=== PATIENT | male | born 1980 | race Caucasian/White ===

== ENCOUNTER → 2017-06-15 11:54 | Outpatient (CLI) | payer BC, SELFPAY ==
[2017-06-15 14:36] LABS: Anion Gap 7 (5-15); BUN 17 mg/dL (7-18); BUN/Creat Ratio 19.4 RATIO (10-20); Calcium,Total 8.7 mg/dL (8.5-10.1); Chloride 103 mmol/L (98-107); Creatinine, Serum 0.88 mg/dL (0.70-1.30); EST Glomerular Filtration Rate 104 mL/min (>60); Est Glom Filt Rate - Afr Amer 126 mL/min (>60); Glucose 90 mg/dL (74-106); Potassium 3.8 mmol/L (3.5-5.1); Sodium Level 138 mmol/L (136-145)
[2017-06-15 14:51] LABS: Hematocrit 44.1 % (40-54); Hemoglobin 15.5 g/dl (13.0-16.5); Mean Corp Hgb Conc 35.1 g/gl (32-36); Mean Corpuscular Hgb 31.3 pg (27.0-32.0); Mean Corpuscular Volume 88.9 fL (80-94); Mean Platelet Vol. 10.2 fl (6.2-12.0); Platelet Count 311 K/mm3 (150-450); RBC Distribution Width CV 12.3 % (11.6-14.6); RBC Distribution Width SD 39.7 fl (35.1-43.9); Red Blood Count 4.96 M/mm3 (4.6-6.2); White Blood Count 5.9 K/mm3 (4.4-11.0)
[2017-06-15 14:59] LABS: Scan Indicated on CBC? Y/N NO
== END ==
PROVIDERS: Family Provider Family Medicine; PCP Family Medicine; Visit Provider Family Medicine
DX: I10 Essential (primary) hypertension (principal)
CPT/HCPCS: 36415; 80048; 85027

== ENCOUNTER → 2017-08-02 08:56 | Outpatient (CLI) | payer BC, SELFPAY ==
--- NOTE | 2017-08-02 09:02 | RAD_ITS ---
STUDY: X-RAY - LUMBAR SPINE REASON FOR EXAM: Male, 37 years old. Lumbago and sciatica TECHNIQUE: 5 view(s) of the lumbar spine were obtained. COMPARISON: None FINDINGS: There is straightening of the normal lumbar lordosis. There is no substantial scoliosis. There is a normal alignment of the vertebrae. Stool throughout the colon. There is multilevel endplate spondylosis of the lumbar vertebrae. There is multi-level degenerative disc disease with multi-level disc space narrowing. The soft tissue structures are unremarkable. RAD/L/S Spine Min 4 Views IMPRESSION: Degenerative changes of the spine, as detailed above. There is mild straightening of the normal lumbar lordosis. This can suggest back strain. Constipation Electronically Signed: Mac Cazares MD at 19:32 EDT , Service support ,
== END ==
PROVIDERS: Family Provider Family Medicine; PCP Family Medicine; Visit Provider Family Medicine
DX: M54.40 Lumbago with sciatica, unspecified side (principal); M47.896 Other spondylosis, lumbar region; M51.36 Other intervertebral disc degeneration, lumbar region; K59.00 Constipation, unspecified
CPT/HCPCS: 72110

== ENCOUNTER → 2018-01-10 10:11 | Outpatient (CLI) | payer BC, SELFPAY ==
--- NOTE | 2018-01-10 10:15 | MRI_ITS ---
STUDY: MRI LUMBAR SPINE WITHOUT CONTRAST REASON FOR EXAM: Male, 37 years old. lumbago with sciatica, left leg pain. TECHNIQUE: Standardized fat and water weighted pulse sequences were obtained in the sagittal and axial planes. COMPARISON: None FINDINGS: T12-L1: Normal endplates. Normal disc height, hydration and morphology. Normal bilateral facet joints. Normal central canal and bilateral lateral recesses. Normal bilateral intervertebral neural foramina. Normal lumbar lordosis. There is no substantial scoliosis. Normal conus medullaris that terminates at the L1 L1-2: Normal endplates. Normal disc height, hydration and morphology. Normal bilateral facet joints. Normal central canal and bilateral lateral recesses. Normal bilateral intervertebral neural foramina. L2-3: Normal endplates. Normal disc height, hydration and morphology. There is mild facet arthropathy. Normal central canal and bilateral lateral recesses. Normal bilateral intervertebral neural foramina. There is L2 hemangioma. L3-4: Normal endplates. Normal disc height, hydration and morphology. There is mild facet arthropathy. Normal central canal and bilateral lateral recesses. Normal bilateral intervertebral neural foramina. L4-5: There is mild disc space narrowing and endplates spondylosis. There is a mild disc bulge with right paracentral protrusion resulting in severe right lateral recess narrowing. There is moderate central canal stenosis. There is mild facet arthropathy. There is mild bilateral foraminal foraminal stenosis L5-S1: There is moderate disc space narrowing and endplates spondylosis. There is mild disc bulge and facet pathology without significant central canal stenosis. There is mild bilateral foraminal stenosis. Normal visualized sacral ala. Normal visualized paraspinous soft tissue structures. MRI/Spine Lumbar (Routine) IMPRESSION: L4/L5: Disc protrusion with severe right lateral recess narrowing. Moderate central canal stenosis. Electronically Signed: Anisha Plasencia MD at 10:35 EDT Tel , Service support ,
== END ==
PROVIDERS: Family Provider Family Medicine; PCP Family Medicine; Referring Provider Family Medicine; Visit Provider Family Medicine
DX: M54.40 Lumbago with sciatica, unspecified side (principal); M48.061 Spinal stenosis, lumbar region without neurogenic claudication
CPT/HCPCS: 72148

== ENCOUNTER → 2019-01-25 08:51 | Outpatient (CLI) | payer BC, SELFPAY ==
[2019-01-25 10:21] LABS: AST(SGOT) 16 U/L (15-37); Alanine Aminotransfer ALT/SGPT 40 U/L (16-61); Albumin, Serum 4.1 g/dL (3.2-5.0); Alkaline Phosphatase 115 U/L (45-117); Anion Gap 9 (5-15); BUN 14 mg/dL (7-18); BUN/Creat Ratio 13.3 RATIO (10-20); Calcium,Total 9.2 mg/dL (8.5-10.1); Chloride 101 mmol/L (98-107); Cholesterol 273 mg/dL (200); Creatinine, Serum 1.05 mg/dL (0.70-1.30); EST Glomerular Filtration Rate 84 mL/min (>60); Est Glom Filt Rate - Afr Amer 101 mL/min (>60); Globulin 4.2 g/dL (2.2-4.2); Glucose 102 mg/dL (74-106); High Density Lipoprotein 47 mg/dL; Protein, Total 8.3 g/dL (6.4-8.2); Sodium Level 139 mmol/L (136-145); Triglycerides 203 mg/dL; Very Low Density Lipoprotein 41 mg/dL (5-40)
[2019-01-25 10:43] LABS: Vitamin D,25 Hydroxy 19.2 ng/mL (29.95-100.01)
== END ==
PROVIDERS: Family Provider Family Medicine; PCP Family Medicine; Referring Provider Family Medicine; Visit Provider Family Medicine
DX: I10 Essential (primary) hypertension (principal); E55.9 Vitamin D deficiency, unspecified
CPT/HCPCS: 36415; 80053; 80061; 82306

== ENCOUNTER → 2021-01-27 09:21 | Outpatient (CLI) | payer BC, MEDICAID, SELFPAY ==
[2021-01-27 10:08] LABS: Anion Gap 5 (5-15); BUN 13 mg/dL (7-18); BUN/Creat Ratio 13.8 RATIO (10-20); Calcium,Total 8.8 mg/dL (8.5-10.1); Chloride 107 mmol/L (98-107); Cholesterol 227 mg/dL (200); Creatinine, Serum 0.94 mg/dL (0.70-1.30); EST Glomerular Filtration Rate 94 mL/min (>60); Est Glom Filt Rate - Afr Amer 114 mL/min (>60); Glucose 107 mg/dL (74-106); High Density Lipoprotein 48 mg/dL; Potassium 3.6 mmol/L (3.5-5.1); Sodium Level 138 mmol/L (136-145); Triglycerides 195 mg/dL; Very Low Density Lipoprotein 39 mg/dL (5-40)
[2021-01-27 10:09] LABS: Vitamin D,25 Hydroxy 17.3 ng/mL
== END ==
PROVIDERS: PCP Family Medicine; Referring Provider Family Medicine; Visit Provider Family Medicine
DX: I10 Essential (primary) hypertension (principal); E55.9 Vitamin D deficiency, unspecified
CPT/HCPCS: 36415; 80048; 80061; 82306

== ENCOUNTER → 2022-11-16 | Outpatient (CLI) | payer BC, MEDICAID, SELFPAY ==
[2022-11-16 18:13] LABS: AST(SGOT) 8 U/L (15-37); Alanine Aminotransfer ALT/SGPT 18 U/L (16-61); Albumin, Serum 4.1 g/dL (3.2-5.0); Alkaline Phosphatase 95 U/L (45-117); Anion Gap 8 (5-15); BUN 8 mg/dL (7-18); BUN/Creat Ratio 9.5 RATIO (10-20); Bilirubin, Direct 0.18 mg/dL (0.00-0.30); Calcium,Total 9.4 mg/dL (8.5-10.1); Chloride 106 mmol/L (98-107); Creatinine, Serum 0.84 mg/dL (0.70-1.30); EST Glomerular Filtration Rate 105 mL/min (>60); Est Glom Filt Rate - Afr Amer 128 mL/min (>60); Globulin 3.4 g/dL (2.2-4.2); Glucose 83 mg/dL (74-106); Potassium 3.4 mmol/L (3.5-5.1); Protein, Total 7.5 g/dL (6.4-8.2); Sodium Level 140 mmol/L (136-145)
[2022-11-16 18:17] LABS: Vitamin D,25 Hydroxy 56.1 ng/mL
== END | disposition home or self-care (01) ==
LOC: MFPLAB 15:17
PROVIDERS: PCP Family Medicine; Visit Provider Family Medicine
DX: I10 Essential (primary) hypertension (principal); R73.09 Other abnormal glucose; R79.89 Other specified abnormal findings of blood chemistry
CPT/HCPCS: 36415; 80048; 80076; 82306

== ENCOUNTER 2023-05-30 13:22 | Emergency (ER) | payer BC, SELFPAY ==
[2023-05-30 13:23] VITALS: BP 156/91; PULSE 71; RESP 18; TEMP 36.2; O2SAT 98; BMI 24.9
[2023-05-30 13:39] LABS: Absolute Lymphocyte Count 1.23 X10^3/uL (0.83-4.51); Absolute Neutrophil Count 10.6 X10^3/uL (2.0-7.7); Basophil# 0.05 X10^3/uL; Basophil% 0.4 % (0-1); Eosinophil# 0.02 X10^3/uL; Eosinophils% 0.2 % (0-5); Hematocrit 42.4 % (40-54); Hemoglobin 14.8 g/dL (13.0-16.5); Lymphocyte # 1.23 X10^3/ul (0.83-4.51); Lymphocyte % 9.6 % (19-41); Mean Corp Hgb Conc 34.9 g/dL (32-36); Mean Corpuscular Hgb 31.6 pg (27.0-32.0); Mean Corpuscular Volume 90.4 fL (80-94); Mean Platelet Vol. 9.8 fl (6.2-12.0); Monocyte# 0.87 X10^3/uL; Monocyte% 6.8 % (0-10); NRBC Flagged by Analyzer 0 % (0-5); Neutrophil # 10.58 X10^3/uL (2.7-7.7); Neutrophil % 82.6 % (47-70); Platelet Count 283 K/mm3 (150-450); RBC Distribution Width CV 12.4 % (11.6-14.6); RBC Distribution Width SD 40.8 fl (35.1-43.9); Red Blood Count 4.69 M/mm3 (4.6-6.2); White Blood Count 12.8 K/mm3 (4.4-11.0)
[2023-05-30 13:54] LABS: ALB/GLOB Ratio 1.2 RATIO (0.9-2.4); AST(SGOT) 13 U/L (15-37); Alanine Aminotransfer ALT/SGPT 14 U/L (16-61); Alkaline Phosphatase 91 U/L (45-117); Anion Gap 4 (5-15); BUN 14 mg/dL (7-18); BUN/Creat Ratio 13.6 RATIO (10-20); Calcium,Total 9.1 mg/dL (8.5-10.1); Chloride 105 mmol/L (98-107); Creatinine, Serum 1.03 mg/dL (0.70-1.30); EST Glomerular Filtration Rate 84 mL/min (>60); Est Glom Filt Rate - Afr Amer 101 mL/min (>60); Estimated Creatinine Clearance 98.49 ml/min; Globulin 3.3 g/dL (2.2-4.2); Glucose 114 mg/dL (74-106); Potassium 3.7 mmol/L (3.5-5.1); Protein, Total 7.3 g/dL (6.4-8.2); Sodium Level 139 mmol/L (136-145)
--- NOTE | 2023-05-30 15:23 | CT_ITS ---
INDICATION: Kidney Stone EXAMINATION: CT ABDOMEN AND PELVIS WITHOUT CONTRAST - CT Abdomen And Pelvis W/O Contrast Injection TECHNIQUE: Helically acquired images were obtained of the abdomen and pelvis without oral or IV contrast. A radiation dose optimization technique was used for this scan. IV Contrast dosage and agent: None. Oral contrast: None. COMPARISON: 06/30/2008 FINDINGS: LOWER CHEST: Lung bases are clear. No cardiomegaly or pericardial effusion. LIVER: Homogeneous. No focal mass. GALLBLADDER AND BILIARY TREE: No calcified gallstones. No gallbladder distension or wall edema. No intra- or extrahepatic biliary ductal dilation. PANCREAS: No focal cystic or solid mass. SPLEEN: Normal size without focal cystic or solid mass. ADRENAL GLANDS: No nodules. KIDNEYS AND URETERS: No nephrolithiasis. Right hydroureteronephrosis with 5 mm calculus in the distal ureter near the right UVJ. PERITONEUM: No ascites or free air. BOWEL: Normal appendix. No stomach or bowel distension. No focal inflammatory change. LYMPH NODES: No enlarged mesenteric or retroperitoneal lymph nodes. VESSELS: Aorta is non-dilated. URINARY BLADDER: Unremarkable. REPRODUCTIVE ORGANS: No pelvic masses. ABDOMINAL WALL: Small fat-containing umbilical hernia. BONES: No acute or aggressive abnormality. CT/Abdomen/Pelvis without Cont IMPRESSION: Partially obstructing 5 mm distal right ureteral calculus. Electronically Signed: Ok Hernandez MD at 17:21 EST ,
--- NOTE | 2023-05-30 15:24 | ED.VIS.GI ---
HPI HPI - GI History of Present Illness Chief Complaint: Abd Pain Informant: patient Narrative Narrative: Waxing waning right-sided abdominal pain for the past 5 days. Times to be more intense than others does feel pain in the kidneys sometimes pain in his scrotum. No nausea or vomiting. Urine urgency. No fevers. No history of kidney stones. No abdominal surgeries. Pain was a lot more intense this morning however subsided. History of hypertension depression. Denies any allergies. Prior similar symptoms: No PFSH PFSH Medical History (Updated 05/30/23 @ 17:[address] Keith Smith DO) Depression Hypertension Home Medications ibuprofen 600 mg tablet 600 mg PO Q6H PRN PRN pain #20 TABLETS 05/30/23 [Rx Last Taken Unknown] ondansetron 4 mg disintegrating tablet 4 mg PO Q8H PRN PRN Nausea #10 tabs 05/30/23 [Rx Last Taken Unknown] oxycodone-acetaminophen 5 mg-325 mg tablet 1 tab PO Q6H PRN PRN Pain 3 days #12 TABLETS 05/30/23 [Rx Last Taken Unknown] Allergy/AdvReac Type Severity Reaction Status Date / Time No Known Allergies Allergy Verified 05/30/23 17:30 Social History Smoking Status: Former smoker ROS ROS ED Constitutional Constitutional ED: Denies chills, fever(s) or sweats Eyes Eyes: Denies change in vision ENT ENT ED: Denies dysphagia or sore throat Cardiovascular Cardiovascular: Denies chest pain, leg edema, palpitations or racing heartbeat Respiratory/Chest Respiratory/Chest: Denies cough, dyspnea or dyspnea on exertion Gastrointestinal Gastrointestinal: Reports abdominal pain; Denies diarrhea, nausea or vomiting Genitourinary Genitourinary ED: Reports other Details: Urine urgency ; Denies dysuria, hematuria or urinary frequency Musculoskeletal Musculoskeletal: Reports back pain; Denies extremity pain or neck pain Integumentary Denies rash or wounds Neurologic Neurologic: Denies headache(s), paresthesias or weakness EXAM Physical Exam Const Vital Signs: 05/30/23 13:23 05/30/23 15:42 05/30/23 17:00 Temperature 97.2 F L Temperature Source Temporal Pulse Rate 71 52 L 74 Respiratory Rate 18 12 14 Blood Pressure 156/91 H 152/95 H 140/79 H Blood Pressure Mean 112 114 99 Pulse Ox 98 99 100 Oxygen Delivery Method Room Air Room Air Room Air 05/30/23 17:29 Temperature 98.1 F Temperature Source Pulse Rate 63 Respiratory Rate 14 Blood Pressure 145/69 H Blood Pressure Mean 94 Pulse Ox 100 Oxygen Delivery Method Positive well nourished and well developed General Appearance ED: well developed and NAD HEENT Reports moist mucous membranes normocephalic and atraumatic Eyes PERRL, EOMs intact bilaterally and conjunctivae normal General Eye ED: Yes normal appearance of both eyes Neck no lymphadenopathy and supple General: Negative for tenderness Chest Wall Chest: Negative for tenderness Resp normal respiratory effort and normal air movement Effort and Inspection: symmetric chest movement; Negative for respiratory distress Cardio regular rate, regular rhythm and no murmurs Peripheral Pulses: pulses 2+ throughout GI normal to inspection, nondistended, normoactive bowel sounds and non-tender GI Narrative: Negative Alvarado's and McBurney's tenderness. No pain left lower quadrant. Soft abdomen. Palpation: Negative for guarding or rebound tenderness present Back/Spine no CVA tenderness and no thoracic nor lumbar tenderness Extremity normal to inspection General Extremety ED: Negative for edema or tenderness General Extremity: Negative for edema Neuro oriented x3 and no sensory deficits noted Sensorium / Orientation: awake and alert Skin no rashes or lesions noted and no wounds MDM MDM MDM Narrative Medical decision making narrative: Interventions / MDM: Differential diagnosis: Diagnosis considered but do not suspect: N/A My EKG interpretation: N/A Imaging independently reviewed and interpreted by myself: N/A External documents reviewed: N/A Test considered but not ordered:N/A ED course: Patient currently is comfortable no current pain nonsurgical abdomen. Pain comes and goes with intensity's. Clinical history more concerning for kidney stones. He had basic labs from triage white count 12. Urine pending. Will add fluids and flank CT for further evaluation. 1700: Urine with blood, no infection. Wet CT by myself notes a distal ureteral stone with hydronephrosis. Awaiting final read. Patient comfortable on reevaluation with no recurrent pain at this time. 1730: Final read from radiologist 5 mm distal ureteral stone with partial obstruction. Patient pain symptom-free. Discussed renal colic. Prescription for symptom control. Urine strainer for home. Follow-up with urology given. Return precautions. All questions were answered. Re-evaluation: stable Disposition discussed with patient/family/significant other: Patient and significant other Case discussed with consulting clinician: N/A This note was generated with [employer] dictation software. It may contain incorrect words, spelling, and punctuation that were not noted in checking the note before signing. Lab Data Attestation: I reviewed the patient's lab results. Labs: Laboratory Results - last 24 hr 05/30/23 05/30/23 13:28 15:50 WBC 12.8 H RBC 4.69 Hgb 14.8 Hct 42.4 MCV 90.4 MCH 31.6 MCHC 34.9 RDW Std Deviation 40.8 RDW Coeff of Kishore 12.4 Plt Count 283 MPV 9.8 Immature Gran % (Auto) 0.400 Neut % (Auto) 82.6 H Lymph % (Auto) 9.6 L Faulkner % (Auto) 6.8 Eos % (Auto) 0.2 Baso % (Auto) 0.4 Absolute Neuts (auto) 10.6 H Absolute Lymphs (auto) 1.23 Nucleated RBC % 0 Sodium 139 Potassium 3.7 Chloride 105 Carbon Dioxide 30.0 Anion Gap 4 L BUN 14 Creatinine 1.03 Estim Creat Clear Calc 98.49 Est GFR (MDRD) Af Amer 101 Est GFR (MDRD) Non-Af 84 BUN/Creatinine Ratio 13.6 Glucose 114 H Calcium 9.1 Total Bilirubin 0.70 AST 13 L ALT 14 L Alkaline Phosphatase 91 Total Protein 7.3 Albumin 4.0 Globulin 3.3 Albumin/Globulin Ratio 1.2 Urine Color Yellow Urine Clarity Clear Urine pH 6.5 Ur Specific Cascade 1.010 Urine Protein Negative Urine Glucose (UA) Normal Urine Ketones 5 H Urine Occult Blood 150 H Urine Nitrite Negative Urine Bilirubin Negative Urine Urobilinogen Normal Ur Leukocyte Esterase Negative Urine RBC 0 SEEN Urine WBC 0 SEEN Ur Squamous Epith Cells 0 SEEN Urine Bacteria 0 SEEN Urine Mucus 0 SEEN Radiography Diagnostic Testing: Clinical Impression(s) from Imaging Studies Abdomen/Pelvis CT 05/30/23 15:23 IMPRESSION: Partially obstructing 5 mm distal right ureteral calculus. Electronically Signed: Ok Hernandez MD at 17:21 EST , Discharge Plan Triage Chief Complaint: Abd Pain ED Provider: Keith Smith Dx/Rx/DC Orders Clinical Impression: Hematuria, Urolithiasis, Renal colic on right side Instructions: ED Kidney Stone with Pain Prescriptions: New ibuprofen 600 mg tablet 600 mg PO Q6H PRN PRN (Reason: pain) Qty: 20 0RF oxycodone-acetaminophen [oxycodone-acetaminophen] 5-325 mg tablet 1 tab PO Q6H PRN PRN (Reason: Pain) 3 Days Qty: 12 0RF ondansetron [ondansetron] 4 mg tablet,disintegrating 4 mg PO Q8H PRN PRN (Reason: Nausea) Qty: 10 0RF Primary Care Provider: Gordo Romo Referrals: Gordo Romo MD [Primary Care Provider] - Kervin Boyer MD [Med Staff - Active Staff] - 3-5 Days Activity Restrictions/Additional Instructions: 5 mm distal ureteral stone found on CT. Urine without infection. Take and use medication as prescribed. Strain your urine. Follow-up with urology. Symptoms worsen not controlled with medications, return to the ED for reevaluation. Disposition Disposition: Home, Self Care
[2023-05-30] MEDS: 0.9% Normal Saline (1000mL) 1,000 ML 250 ML IV (15:35)
[2023-05-30 15:42] VITALS: BP 152/95; PULSE 52; RESP 12; O2SAT 99
[2023-05-30 15:54] LABS: Bacteria 0 SEEN /hpf (None Seen); Mucous, Urine 0 SEEN /hpf (<or=2+); Red Blood Cells-Urine 0 SEEN /hpf (0-5); Squamous Epithelial Cells - UA 0 SEEN /hpf (0-5); White Blood Cells 0 SEEN /hpf (0-5)
[2023-05-30 15:57] LABS: Color, Urine Yellow (Yellow); Glucose, Dipstick Normal (Normal); Ketone-Dipstick 5 mg/dl (Negative); Leukocyte Esterase-Dipstick Negative /ul (Negative); Nitrite-Dipstick Negative (Negative); Occult Blood-Urine 150 /ul (Negative); Protein-Dipstick Negative (Negative); Urine Bilirubin Dipstick Negative (Negative); Urine Clarity Clear (Clear); Urine Urobilinogen Normal (Normal); Urine pH 6.5 (5.0 - 8.0)
[2023-05-30 17:00] VITALS: BP 140/79; PULSE 74; RESP 14; O2SAT 100
[2023-05-30 17:29] VITALS: BP 145/69; PULSE 63; RESP 14; TEMP 36.7; O2SAT 100
== END 2023-05-30 17:58 | disposition home or self-care (01) ==
PROVIDERS: Emergency Provider Emergency Medicine; PCP Family Medicine; Visit Provider Emergency Medicine
DX: N20.1 Calculus of ureter (principal); Z87.891 Personal history of nicotine dependence
CPT/HCPCS: 74176; 80053; 81001; 85025; 96360; 96361; 99284; J7030; A4216